=== PATIENT | female | born 1945 | race Caucasian/White ===

== ENCOUNTER → 2018-02-25 | Outpatient (CLI) | payer MEDICARE, BC ==
--- NOTE | 2018-02-25 17:35 | KCIC ---
Renal ultrasound History: Chronic kidney disease stage III Technique: Sonographic imaging of both kidneys. Right kidney: * 10.7 cm length. * No evidence of calcified stone or hydronephrosis. * Mild cortical thinning. Left kidney: * 12.2 cm length. * No evidence of calcified stone or hydronephrosis. * Mild cortical thinning. Urinary bladder: Bladder was emptied prior to the scan, therefore not evaluated. Right and left ureteric jets were not seen during the exam. Miscellaneous findings: The proximal aorta is obscured by bowel gas. The mid to distal aorta demonstrate no gross aneurysm. Inferior vena cava also obscured by bowel gas. Impression: Bilateral cortical thinning. Right kidney measures somewhat small compared with the left. No hydronephrosis. Ureteric jets not visualized. Electronically signed by: Frank Montoya MD (02/25/2018 5:31 PM) [id number]
== END | disposition home or self-care (01) ==
LOC: KCIC US 09:58
DX: N18.3 Chronic kidney disease, stage 3 (moderate) (principal)
CPT/HCPCS: 76770